=== PATIENT | male | born 1975 | race Caucasian/White ===

== ENCOUNTER 2022-03-05 10:42 | Emergency (ER) | payer BC ==
[~2022-03-05] VITALS: Ht 182.9 cm; Wt 100.0 kg
[2022-03-05 12:13] LABS: COVID AG,FIA SOURCE NASAL SWAB
[2022-03-05] MEDS ORDERED: ACETAMINOPHEN 500 MG TABLET PO ONE (13:15)
[2022-03-05 13:32] LABS: INFLUENZA TYPE A NEGATIVE FOR TYPE A (NEGATIVE); INFLUENZA TYPE B NEGATIVE FOR TYPE B (NEGATIVE)
[2022-03-05 13:49] VITALS: BP 108/77
== END 2022-03-05 13:54 | disposition home or self-care (01) ==
LOC: EMS 10:44
DX: U07.1 COVID-19 (principal); F12.90 Cannabis use, unspecified, uncomplicated; J45.909 Unspecified asthma, uncomplicated
CPT/HCPCS: 87426; 87804; 99283; C9803; U0003